=== PATIENT | male | born 1975 | race Caucasian/White ===

== ENCOUNTER 2021-10-19 12:16 | Emergency (ER) | payer OTHER ==
[~2021-10-19] VITALS: Ht 180.3 cm; Wt 147.4 kg
--- OUTSIDE RECORDS SUMMARY | 2021-10-19 12:22 | XMS REPORT | Clinical Summary ---
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
--- NOTE | 2021-10-19 12:55 | ED Abdominal Pain ---
General Chief Complaint: Abdominal/GI Problems Stated Complaint: CONSTIPATION Nursing Triage Note: PT AMB TO RM 4 WITH COMPLAINT OF CONSTIPATION. STATES HAS NOT POOPED IN 3 DAYS. HAS DRANK 2 BOTTLES OF MAGNEISUM CITRATE. Source of Information: Patient Exam Limitations: No Limitations History of Present Illness Date Seen by Provider: Oct 19, 2021 Time Seen by Provider: 12:51 Initial Comments Patient is a 46-year-old male who presents ED with abdominal pain. Pain over the past 3 days. Pain is located to his lower abdomen and migrating to his upper abdomen. Pain has increased. He states it hurts to eat. Patient states last bowel movement 3 days ago. Does take a daily laxative with a history of constipation. Attempted magnesium citrate a full bottle without any bowel movements. Denies of any rectal pain, rectal bleeding, vomiting, previous abdominal surgery. States he feels distended. Denies fever, chills, chest pain, cough, shortness of breath. he does have a history of hypertension. Allergies and Home Medications Allergies Coded Allergies: morphine (Verified Allergy, Unknown, 10/19/21) Patient Home Medication List Home Medication List Reviewed: Yes Hydrocodone Bit/Acetaminophen (HYDROcodone/APAP 10/325 TABLET) 1 Ea Tab, 1 TAB PO Q4H PRN for PAIN Prescribed by: STEPHEN HENRY on 10/19/21 1433 Ondansetron (Ondansetron Odt) 4 Mg Tab.rapdis, 4 MG PO Q6H Prescribed by: STEPHEN HENRY on 10/19/21 1433 Review of Systems Review of Systems Constitutional: No chills, No diaphoresis, No dizziness, No fever, No malaise EENTM: No Eye Pain, No Eye Tearing, No Ear Drainage Respiratory: Denies Cough, Denies Orthopnea, Denies SOA With Exertion, Denies SOA at Rest Cardiovascular: Denies Chest Pain, Denies Irregular Heart Rate Gastrointestinal: Abdomen Distended, Abdominal Pain, Constipated; Denies Diarrhea; Nausea; Denies Vomiting Genitourinary: Denies Burning, Denies Discharge, Denies Drainage, Denies Frequency Musculoskeletal: No back pain, No gout, No joint swelling, No muscle pain Skin: No change in color, No change in hair/nails All Other Systems Reviewed Negative Unless Noted: Yes Past Knhxkvi-Tvvrrd-Wgestx Hx Patient Social History Tobacco Use?: No Substance use?: No Alcohol Use?: Yes Alcohol Frequency: Once in a while Pt feels they are or have been: No Immunizations Up To Date Influenza Vaccine Up-to-Date: No; Not Current First/Initial COVID19 Vaccinat: NO Second COVID19 Vaccination Guido: NO Third COVID19 Vaccination Date: NO Physical Exam Vital Signs Vital Signs - First Documented 10/19/21 12:34 Pulse 89 Resp 16 B/P (MAP) 157/102 (120) Pulse Ox 96 O2 Delivery Room Air Capillary Refill : Less Than 3 Seconds Height/Weight/BMI Height: '" Weight: lbs. oz. kg; 45.00 BMI Method: General Appearance: WD/WN, no apparent distress HEENT: PERRL/EOMI, normal ENT inspection, TMs normal, pharynx normal Neck: non-tender, full range of motion, supple, normal inspection Respiratory: chest non-tender, lungs clear, normal breath sounds, no respiratory distress, no accessory muscle use Cardiovascular: regular rate, rhythm, no edema, no gallop, no JVD, no murmur Gastrointestinal: normal bowel sounds, soft, no organomegaly, no pulsatile mass, tenderness (Left lower quadrant tenderness, epigastric tenderness) Extremities: normal range of motion, non-tender, normal inspection, no pedal edema, no calf tenderness Back: normal inspection, no CVA tenderness, no vertebral tenderness Progress/Results/Core Measures Results/Orders Lab Results Laboratory Tests Test 10/19/21 13:20 Range/Units White Blood Count 11.7 H 4.3-11.0 10^3/uL Red Blood Count 4.99 4.30-5.52 10^6/uL Hemoglobin 14.3 13.3-17.7 g/dL Hematocrit 43 40-54 % Mean Corpuscular Volume 85 80-99 fL Mean Corpuscular Hemoglobin 29 25-34 pg Mean Corpuscular Hemoglobin Concent 34 32-36 g/dL Red Cell Distribution Width 13.1 10.0-14.5 % Platelet Count 224 130-400 10^3/uL Mean Platelet Volume 10.7 9.0-12.2 fL Immature Granulocyte % (Auto) 0 % Neutrophils (%) (Auto) 81 H 42-75 % Lymphocytes (%) (Auto) 10 L 12-44 % Monocytes (%) (Auto) 7 0-12 % Eosinophils (%) (Auto) 1 0-10 % Basophils (%) (Auto) 0 0-10 % Neutrophils # (Auto) 9.5 H 1.8-7.8 X 10^3 Lymphocytes # (Auto) 1.2 1.0-4.0 X 10^3 Monocytes # (Auto) 0.9 0.0-1.0 X 10^3 Eosinophils # (Auto) 0.1 0.0-0.3 10^3/uL Basophils # (Auto) 0.0 0.0-0.1 10^3/uL Immature Granulocyte # (Auto) 0.0 0.0-0.1 10^3/uL Sodium Level 135 135-145 MMOL/L Potassium Level 3.7 3.6-5.0 MMOL/L Chloride Level 99 98-107 MMOL/L Carbon Dioxide Level 28 21-32 MMOL/L Anion Gap 8 5-14 MMOL/L Blood Urea Nitrogen 9 7-18 MG/DL Creatinine 0.92 0.60-1.30 MG/DL Estimat Glomerular Filtration Rate 88 BUN/Creatinine Ratio 10 Glucose Level 156 H 70-105 MG/DL Calcium Level 9.1 8.5-10.1 MG/DL Corrected Calcium 9.0 8.5-10.1 MG/DL Total Bilirubin 1.0 0.1-1.0 MG/DL Aspartate Amino Transf (AST/SGOT) 13 5-34 U/L Alanine Aminotransferase (ALT/SGPT) 25 0-55 U/L Alkaline Phosphatase 105 40-136 U/L Total Protein 7.6 6.4-8.2 GM/DL Albumin 4.1 3.2-4.5 GM/DL Lipase 119 H 8-78 U/L My Orders Orders - CATHI ONEIL Cbc With Automated Diff (10/19/21 12:47) Comprehensive Metabolic Panel (10/19/21 12:47) Lipase (10/19/21 12:47) Ns Iv 1000 Ml (Sodium Chloride 0.9%) (10/19/21 13:00) Ua Culture If Indicated (10/19/21 12:47) Ct Abdomen/Pelvis W (10/19/21 12:47) Iv/Invasive Line Insertion .IV start (10/19/21 12:47) Iohexol Injection (Omnipaque 350 Mg/Ml 1 (12/31/21 13:45) Received Contrast (Hold Metformin- Contr (10/19/21 13:45) Ns (Ivpb) (Sodium Chloride 0.9% Ivpb Bag (10/19/21 13:45) Fentanyl Inj (Sublimaze Injection) (10/19/21 14:34) Vital Signs/I&O 10/19/21 12:34 Pulse 89 Resp 16 B/P (MAP) 157/102 (120) Pulse Ox 96 O2 Delivery Room Air Blood Pressure Mean: 120 Departure Communication (PCP) Patient with mild pain here. Patient Was given IV fentanyl and a liter of fluid. Reports last bowel movement 3 days ago. Reports some discomfort after eating. No history of previous abdominal surgery. Lab work showed slightly elevated white blood count 11.7. Elevated lipase 113. Normal kidney function, liver function. CT abdomen pelvis shows mild pancreatitis without evidence of pseudocyst. Normal gallbladder. No evidence of gallstone. No evidence of bowel obstruction, impaction. Patient was able to provide a urine but did not collect urine sample. Patient feels much better at this time. Discussed clear liquids for the next 48 to 72 hours. Discussed low-fat diet afterwards. Will discharge with pain medication nausea medication. If worsening pain return back to ED. Recommend follow-up with your PCP in 2 to 3 days for reevaluation with lab work. Denies alcohol use. No change in medications. Denies history of elevated triglycerides.. Denies history of diabetes. No recent travels. Patient with a steady gait. Patient will return if symptoms worsen Impression Primary Impression: Pancreatitis Disposition: 01 HOME, SELF-CARE Condition: Stable Departure-Patient Inst. Decision time for Depature: 14:22 Referrals: SELFMARIANNE MD (PCP/Family) Primary Care Physician Patient Instructions: Pancreatitis Add. Discharge Instructions: Recommend liquid diet over the next 48 to 72 hours. May increase a low-fat diet. will discharge pain medication and nausea medication. Follow-up outpatient with your primary care physician for reevaluation next week. If worsening pain return back to ED for further evaluation. No alcohol is recommended. All discharge instructions reviewed with patient and/or family. Voiced understanding. Scripts Hydrocodone Bit/Acetaminophen (HYDROcodone/APAP 10/325 TABLET) 1 Ea Tab 1 TAB PO Q4H PRN for PAIN, #10 TAB 0 Refills Prov: CATHI ONEIL 10/19/21 Ondansetron (Ondansetron Odt) 4 Mg Tab.rapdis 4 MG PO Q6H, #14 TAB Prov: CATHI ONEIL 10/19/21 CATHI ONEIL Oct 19, 2021 12:55
[2021-10-19] MEDS ORDERED: NS IV 1000 ML 1,000 ML IV SCH (13:00)
[2021-10-19 13:28] LABS: BASOPHILS % (AUTO) 0 % (0-10); EOSINOPHILS # (AUTO) 0.1 10^3/uL (0.0-0.3); EOSINOPHILS % (AUTO) 1 % (0-10); HEMATOCRIT 43 % (40-54); HEMOGLOBIN 14.3 g/dL (13.3-17.7); LYMPHOCYTES # (AUTO) 1.2 X 10^3 (1.0-4.0); LYMPHOCYTES % (AUTO) 10 % (12-44); MEAN CORPUSCULAR HEMOGLOBIN 29 pg (25-34); MEAN CORPUSCULAR HGB CONC 34 g/dL (32-36); MEAN CORPUSCULAR VOLUME 85 fL (80-99); MEAN PLATELET VOLUME 10.7 fL (9.0-12.2); MONOCYTES # (AUTO) 0.9 X 10^3 (0.0-1.0); MONOCYTES % (AUTO) 7 % (0-12); NEUTROPHILS # (AUTO) 9.5 X 10^3 (1.8-7.8); NEUTROPHILS % (AUTO) 81 % (42-75); PLATELET COUNT 224 10^3/uL (130-400); WHITE BLOOD COUNT 11.7 10^3/uL (4.3-11.0)
[2021-10-19 13:42] LABS: ALBUMIN 4.1 GM/DL (3.2-4.5); POTASSIUM 3.7 MMOL/L (3.6-5.0)
[2021-10-19 13:43] LABS: CALCIUM 9.1 MG/DL (8.5-10.1)
[2021-10-19 13:45] LABS: TOTAL PROTEIN 7.6 GM/DL (6.4-8.2)
[2021-10-19] MEDS ORDERED: IOHEXOL 350 MG/ML 100 ML (OMNIPAQUE 350) VIAL IV ONE (13:45)
[2021-10-19] MEDS ORDERED: NS 100 ML (IVPB) BAG IV ONE (13:45)
[2021-10-19] MEDS ORDERED: HOLD METFORMIN - RECEIVED CONTRAST 20 ML VIAL IV SCH (13:45)
[2021-10-19 13:48] LABS: CREATININE SERUM 0.92 MG/DL (0.60-1.30)
--- NOTE | 2021-10-19 14:04 | Diagnostic Imaging Report ---
EXAMINATION: CT abdomen and pelvis with intravenous contrast. TECHNIQUE: Multiple contiguous axial images were obtained through the abdomen and pelvis after the uneventful administration of intravenous contrast. All CT scans use one or more of the following dose optimizing techniques: automated exposure control, MA and/or KvP adjustment based on patient size and exam type or iterative reconstruction. HISTORY: Lower abdominal pain. COMPARISON: None available. FINDINGS: The heart is unremarkable. Subsegmental atelectasis is seen in the lung bases. Mild inflammatory changes are seen surrounding the distal body and tail of the pancreas. No focal pancreatic lesions are seen. No evidence of pancreatic ductal dilation. No loculated collections are seen in the upper abdomen. There is hepatic steatosis. No focal hepatic lesions are seen. The portal vein is patent. The gallbladder is unremarkable. The spleen, adrenal glands, and kidneys have a normal appearance. There is no pathologically enlarged mesenteric or retroperitoneal adenopathy. The bowel loops are nondilated. The appendix is visualized in the right lower quadrant and has a normal appearance. There is no free fluid or free air. No acute osseous abnormalities. Ureters and bladder are grossly normal. There is no free air, loculated collection, or adenopathy in the pelvis. IMPRESSION: 1. Mild inflammatory changes adjacent to the distal body and tail of the pancreas, concerning for acute pancreatitis. No focal pancreatic lesion is seen. No evidence of pseudocyst. Recommend correlation with patient history and laboratory values and follow-up as indicated. 2. Hepatic steatosis. No focal hepatic lesions. Dictated by: Dictated on workstation # [id number]
[2021-10-19] MEDS ORDERED: ACHYD1T PO (14:33)
[2021-10-19] MEDS ORDERED: ONDA4TAB11 PO (14:33)
[2021-10-19] MEDS ORDERED: fentaNYL INJ 100 MCG/2 ML AMP IVP STA (14:34)
[2021-10-19 15:16] VITALS: BP 153/92
== END 2021-10-19 15:21 | disposition home or self-care (01) ==
LOC: EDUNIT# 12:16 → ER 12:19
DX: K85.90 Acute pancreatitis without necrosis or infection, unspecified (principal)
CPT/HCPCS: 36415; 74177; 80053; 83690; 85025